=== PATIENT | female | born 1955 | race Two or more races ===

== ENCOUNTER 2025-02-13 18:01 | Emergency (ER) | payer MEDICAID, SELFPAY ==
[2025-02-13 18:18] VITALS: BP 163/80; PULSE 73; RESP 20; TEMP 36.8; O2SAT 98
--- NOTE | 2025-02-13 18:53 | XR_ITS ---
Examination: CT brain head without contrast. 2-D sagittal coronal reconstructions Date and time of exam: February 13, 2025, 1912 hours INDICATIONS: Generalized head pain with facial numbness today CTDI: vol (mGy): 46.9 DLP: (mGycm): 902 Technique: Multiple CT axial sections of the brain have been obtained, 5 mm slice thickness. Contrast has not been administered. 2-D sagittal, coronal reconstructions have been obtained Low dose protocols were performed. One or more of the following dose reduction techniques were used; automated exposure control, adjustment of the mA and/or KV according to patient size, use of iterative reconstruction technique. Findings: No significant ventricular enlargement. Intra-axial or extra-axial hemorrhage density is not seen. No mass effect or midline shift Basal cisterns are not remarkable. Fourth ventricle is midline. Cranial vault intact. Impression: Negative for acute hemorrhage, mass effect or midline shift As clinically warranted, consider brain MRI follow-up without intravenous contrast
--- NOTE | 2025-02-13 18:54 | EDNOTE_ITS ---
ED General RME/HPI General Chief complaint: General Adult/Misc Complain Stated complaint: PARALYSIS R) SIDE OF FACE, PAIN IN FACE X 8 DAYS Time Seen by Provider: 02/13/25 18:17 Arrival date/time: 02/13/25 18:01 69-year-old female reports with complaints of right side facial palsy pain and ringing in ears and headache x 8 days. Patient was evaluated by primary care provider today who sent her to the emergency department for further evaluation. Patient denies memory loss head injury dizziness blurred vision nausea vomiting dizziness weakness fatigue fever chills history of herpes virus or other viruses or skin rash. Patient states that she has not taken any medications for symptoms. Patient also denies use of illicit substances Limitations: no limitations Related Data Previous Rx's ?Medication ?Instructions ?Recorded prednisone 20 mg tablet 60 mg PO QDAY 5 days #15 tab s 02/13/25 Allergies Allergy/AdvReac Type Severity Reaction Status Date / Time No Known Allergies Allergy Verified 02/13/25 18:10 Review of Systems Constitutional Constitutional: Denies chills, Denies fever(s) and Reports headache(s) Eyes Eyes: Denies diplopia and Denies eye discharge ENT Ears, Nose, Mouth, and Throat: Denies abnormal hearing, Reports headache(s), Denies throat swelling, Reports tinnitus and Denies tongue swelling Cardiovascular Cardiovascular: Denies chest pain, Denies dyspnea and Denies syncope Respiratory Respiratory: Denies cough and Denies dyspnea Gastrointestinal Gastrointestinal: Denies nausea and Denies vomiting Integumentary/Breasts Skin/Breast: Denies rash, Denies skin pain and Denies sores Neurologic Neurologic: Denies abnormal hearing, Denies convulsions, Denies localized weakness, Reports headache(s), Denies memory loss and Denies syncope Psychiatric Psychiatric: Denies anxiety, Denies depression and Denies memory loss Endocrine Endocrine: Denies cold intolerance and Denies heat intolerance Hematologic/Lymphatic Hematologic/Lymphatic: Denies easy bleeding, Denies easy bruising and Denies lymphadenopathy Allergic/Immunologic Allergic/Immunologic: Denies throat swelling, Denies tongue swelling and Denies urticaria Past Medical History Social History SMOKING STATUS: Never smoker ED Exam General Limitations: Present no limitations General appearance: Present alert and in no apparent distress Head Head exam: Present atraumatic and normocephalic Eye Eye exam: Present normal appearance, PERRL and EOMI; Absent nystagmus, miosis, mydriasis or periorbital swelling ENT ENT exam: Present normal exam, normal oropharynx, mucous membranes moist, TM's normal bilaterally and normal external ear exam Neck Neck exam: Present normal inspection, full ROM and trachea midline Chest Chest inspection: Present normal inspection and symmetric chest wall rise Respiratory Respiratory exam: Present normal lung sounds bilaterally Cardiovascular Cardiovascular exam: Present regular rate, normal rhythm and normal heart sounds Abdominal Exam Abdominal exam: Present soft and normal bowel sounds Extremities Exam Extremities exam: Present normal inspection and full ROM Back Exam Back exam: Present normal inspection and full ROM Neurological Exam Neurological exam: Present alert, oriented X3, normal gait, motor sensory deficit, reflexes normal and other; Absent CN II-XII intact (right side facial palsy noted ) Psychiatric Psychiatric exam: Present normal affect and normal mood Skin Skin exam: Present warm, dry, intact and normal color Course Course Course Narrative: 69-year-old female reports with complaints of right side facial palsy, headache, and ringing in ears x [address] is negative for any shifts or bleeds. Patient is stable nontoxic-appearing with stable vital signs she will be discharged home. Even though the patient states the onset was approximately 8 days ago I will prescribe oral steroids as I feel it may still offer some benefit. Patient is advised to follow-up with her primary care provider. She is advised if symptoms should worsen with to return to the emergency department. Quality Measures none Orders Category Date Time Status CT head/brain wo con Stat Exams 02/13/25 18:53 Completed Vital Signs Vital signs: Vital Signs Temperature 98.2 F 02/13/25 18:18 Pulse Rate 73 02/13/25 18:18 Respiratory Rate 20 02/13/25 18:18 Blood Pressure 163/80 H 02/13/25 18:18 Pulse Oximetry (%) 98 02/13/25 18:18 Oxygen Delivery Method Room Air 02/13/25 18:18 Discharge Plan Plan Patient Disposition: HOME (Self Care) Prescriptions/Referrals Prescriptions/Med Rec: New prednisone 20 mg tablet 60 mg PO QDAY 5 Days Qty: 15 0RF Taper: Prednisone Taper 20 mg DAILY for 2 Days and 0 Hour 10 mg DAILY for 2 Days and 0 Hour 5 mg DAILY for 7 Days and 0 Hour Rx Instructions: days 11-21 of therapy Referrals: No Primary/Family,Physician [Primary Care Provider] - In 1 week Problem List Clinical Impression: Marques's palsy Patient/Caregiver Discharge Instructions Education Materials: ED Marques's Palsy Additional Instructions: Take medication as directed hydrate well follow-up with your primary care provider in 2 days for reevaluation. Return to the emergency department if symptoms should worsen Print Language: Senegalese Stand Alone Forms: [facility] Award Info., Patient Portal Info Letter
== END 2025-02-13 20:40 | disposition home or self-care (01) ==
PROVIDERS: Emergency Provider Emergency Medicine
DX: G51.0 Bell's palsy (principal)
CPT/HCPCS: 70450; 99282; J7512